=== PATIENT | male | born 1975 | race Caucasian/White ===

== ENCOUNTER 2018-06-29 21:13 | Emergency (ER) | payer MEDICAID, SELFPAY ==
[2018-06-29 21:14] VITALS: BP 184/106; PULSE 79; RESP 20; TEMP 36.7; O2SAT 97; BMI 24.7
--- NOTE | 2018-06-29 21:16 | ED.RN ---
CALLED FOR EKG PER RN REQUEST, PULLED OLD EKGS FOR
--- NOTE | 2018-06-29 21:21 | RAD_ITS ---
STUDY: X-RAY CHEST REASON FOR EXAM: Male, 43 years old. Chest pain TECHNIQUE: Portable chest COMPARISON: None. FINDINGS: The lungs are clear and expanded. There is no demonstrated pleural abnormality. Normal size heart. Normal mediastinum and anay. Normal visualized pulmonary arteries. Normal visualized aortic arch and descending thoracic aorta. Normal visualized thoracic spine. Normal visualized ribs, clavicles, and shoulders. There is no demonstrated abnormality of the visualized soft tissue structures of the upper abdomen. RAD/Chest 1 View (Portable) IMPRESSION: Normal x-ray examination of the chest. Electronically Signed: Sebastian Blair, at 21:37 EDT Tel , Service support ,
--- NOTE | 2018-06-29 21:21 | EKG12_ITS ---
Test Reason : CHEST PAIN Blood Pressure : / mmHG Vent. Rate : 075 BPM Atrial Rate : 075 BPM P-R Int : 192 ms QRS Dur : 090 ms QT Int : 354 ms P-R-T Axes : 051 010 036 degrees QTc Int : 395 ms Normal sinus rhythm Normal ECG Confirmed by HARSHIL CROCKER, ALLY ([id number]), editor city [place]ARY MONTGOMERY ([id number]) on 07/02/2018 1:44:10 PM Referred By: MAXIMILIAN Confirmed By:ALLY CHUA MD
--- NOTE | 2018-06-29 21:33 | ED.DCSUM_ITS ---
- ER Visit Summary Date of Service: 06/29/18 Chief Complaint: Chest pain History of Present Illness: The patient is a 43 M who presents with chest pain. The chest pain started yesterday. He describes sharp pains in his sternal area. It does not radiate. Nothing makes it better or worse. He denies any history of heart issues in the past. He took nothing for his symptoms at home. He is a smoker but has no other cardiac risk factors. Physical Examination: Vital signs reviewed. HEENT exam unremarkable. Heart is regular rate and rhythm without murmurs. Lungs are clear to auscultation. Abdomen is soft and nontender. Extremities reveal no edema. Peripheral pulses are equal. Skin exam normal. Neurologic exam normal. Test Results: Laboratory studies unremarkable. Chest x-ray unremarkable. EKG is sinus rhythm with no ST changes Emergency Department Course and Treatment: Patient was given aspirin. This is likely musculoskeletal pain as it is reproducible. Patient will be discharged with naproxen. Will follow up with his PCP Treatment Plan: [] Disposition: Discharge Impression: Muscular skeletal chest pain This note was generated with [employer] dictation software. It may contain incorrect words, spelling, and punctuation that were not noted in review of the chart prior to signing ED Disposition - Plan for ED Patient: Referrals: Care Physician,No Primary [Primary Care Provider] -
--- NOTE | 2018-06-29 21:38 | ED.RN ---
Pt refuses oxygen stating you can take that and shove it up your fucking ass. Then refuses IV, but allows blood draw. Dr. Cookie lebron.
[2018-06-29 21:54] LABS: Absolute Lymphocyte Count 4.32 X10^3/ul (0.83-4.51); Absolute Neutrophil Count 4.8 X10^3/uL (2.0-7.7); Basophil# 0.14 X10^3/uL; Basophil% 1.2 % (0-1); Eosinophil# 0.98 X10^3/uL; Eosinophils% 8.7 % (0-5); Hematocrit 39.7 % (40-54); Hemoglobin 14.3 g/dl (13.0-16.5); Lymphocyte # 4.32 X10^3/ul (4.0); Lymphocyte % 38.3 % (19-41); Mean Corpuscular Hgb 30.6 pg (27.0-32.0); Mean Platelet Vol. 9.6 fl (6.2-12.0); Monocyte# 1.04 X10^3/uL; Monocyte% 9.2 % (0-10); Neutrophil # 4.78 X10^3/uL (2.7-7.7); Neutrophil % 42.3 % (47-70); POSITIVE COUNT NO; POSITIVE DIFFERENTIAL NO; POSITIVE MORPHOLOGY NO; Platelet Count 352 K/mm3 (150-450); RBC Distribution Width CV 12.9 % (11.6-14.6); RBC Distribution Width SD 39.5 fl (35.1-43.9); Red Blood Count 4.67 M/mm3 (4.6-6.2); White Blood Count 11.3 K/mm3 (4.4-11.0)
[2018-06-29 22:01] LABS: Anion Gap 7 (5-15); BUN 16 mg/dL (7-18); BUN/Creat Ratio 14.2 RATIO (10-20); Calcium,Total 8.9 mg/dL (8.5-10.1); Chloride 108 mmol/L (98-107); Creatinine, Serum 1.13 mg/dL (0.70-1.30); EST Glomerular Filtration Rate 75 mL/min (>60); Est Glom Filt Rate - Afr Amer 91 mL/min (>60); Estimated Creatinine Clearance 94.28 ml/min; Glucose 141 mg/dL (74-106); Potassium 3.6 mmol/L (3.5-5.1); Sodium Level 140 mmol/L (136-145)
--- NOTE | 2018-06-29 22:10 | ED.DEP ---
ED Disposition - Plan for ED Patient: Disposition: Home or Assisted Living Instructions: ED Chest Pain NonCardiac Prescriptions: Naproxen [Naprosyn] 500 mg PO BID PRN #20 tab Referrals: Care Physician,No Primary [Primary Care Provider] -
[2018-06-29 22:27] VITALS: BP 136/90; PULSE 75; RESP 18; O2SAT 97
== END 2018-06-29 22:28 | disposition home or self-care (01) ==
PROVIDERS: Emergency Provider Emergency Medicine
DX: R07.89 Other chest pain (principal); F17.200 Nicotine dependence, unspecified, uncomplicated
CPT/HCPCS: 36415; 71045; 80048; 84484; 85025; 93005; 99283